=== PATIENT | male | born 1960 | race Caucasian/White ===

== ENCOUNTER 2024-08-13 16:23 | Emergency (ER) | payer OTHER, SELFPAY ==
--- NOTE | ~2024-08-13 | CT_ITS ---
EXAMINATION: CT abdomen pelvis wo con DATE: 08/13/2024 17:24 INDICATION: LLQ abd pain, hematuria TECHNIQUE: Computed tomography (CT) of the abdomen and pelvis was performed without intravenous contr ast. Automated exposure control and iterative reconstruction technique were employed. The dose-length product was 335.63 mGy-cm. COMPARISON: None. FINDINGS: Lower thorax: Unremarkable Liver: Normal. Biliary/Gallbladder: Gallbladder is normal. No bile duct dilation. Pancreas: No mass or duct dilation. Spleen: Normal. Adrenals:No mass. Kidneys: No suspicious mass. Multiple nonobstructing right renal calculi. Mild left perinephric stran ding. Moderate left hydronephrosis. GI tract: No small or large bowel dilation. Normal appendix. Mesentery/Peritoneum: No ascites, mass, or free air. Retroperitoneum: No mass. Pelvis: Nearly empty urinary bladder. Enlarged prostate. 4 mm calcification in the left UVJ. Soft Tissues: Soft tissues and body wall unremarkable. Bones: No acute osseous finding. IMPRESSION: 4 mm calcification in the left UVJ causing moderate obstructive uropathy. Reviewed, dictated and finalized at location [facility].
[2024-08-13 16:22] VITALS: BP 143/102; PULSE 62; RESP 20; TEMP 36.6; O2SAT 100
[2024-08-13 16:53] LABS: Basophils Percent Auto 0.3 % (0.2-1.2); Eosinophils Absolute Auto 0.1 K/mm3 (0-0.3); Eosinophils Percent Auto 0.8 % (0-4.4); Hematocrit 39.3 % (42.0-52.0); Hemoglobin 13.6 g/dL (14.0-18.0); Immature Granulocyte Absolute 0.06 K/mm3 (0.00-0.031); Immature Granulocyte Percent A 0.5 % (0-0.5); Lymphocytes Absolute Auto 1.14 K/mm3 (0.9-3.2); Lymphocytes Percent Auto 9.8 % (18.3-44.2); Mean Corpuscular HGB Conc 34.6 g/dl (32-36); Mean Corpuscular Hemoglobin 30.9 pg (26-34); Mean Corpuscular Volume 89.3 fl (80-100); Mean Platelet Volume 10.3 fl (7.4-10.4); Monocytes Absolute Auto 0.7 K/mm3 (0.1-0.6); Monocytes Percent Auto 6.2 % (2.6-8.5); Neutrophils Absolute Auto 9.6 K/mm3 (1.3-6.7); Neutrophils Percent Auto 82.4 % (45.5-73.1); Platelet Count Result 259 k/mm3 (150-375); Red Cell Distribution Width 12.8 % (11.5-14.5); White Blood Count 11.6 K/mm3 (4.5-10.0)
[2024-08-13 16:57] LABS: Add Urine Microscopic? YES; Appearance Urine Cloudy (Clear); Bacteria Urine None Seen /hpf; Bilirubin Urine Negative (Negative); Blood Urine 3+ (Negative); Color Urine Dark Yellow (Yellow); Glucose Urine UA Negative (Negative); Ketones Urine 3+ mg/dL (Negative); Leukocyte Esterase Ur Trace LEU/UL (Negative); Nitrate Urine Negative (Negative); Non Pathogenic Casts 0-2; Protein Urine 1+ mg/dL (Negative); RBC Urine >100 /hpf (0-2); Specific Grav Ur 1.023 (1.001-1.035); Squamous Epithelial Cell Urine None Seen /hpf (Few); pH Urine 8.5 (5.0-9.0)
[2024-08-13 17:03] LABS: Alanine Aminotransferase 19 U/L (6-50); Albumin Level 4.5 g/dL (3.5-5.1); Alkaline Phosphatase 104 U/L (38-126); Anion Gap 11 mmol/L (4-12); Aspartate Amino Transferase 28 U/L (17-59); Bilirubin,Total 1.4 mg/dL (0.2-1.3); Blood Urea Nitrogen 13 mg/dL (9-20); Calcium 9.2 mg/dL (8.4-10.2); Carbon Dioxide 24 mmol/L (22-30); Chloride 105 mmol/L (98-107); Estimated CRCL calculation 75 ml/min; Estimated Glomerular Filt Rate > 60; Glucose 96 mg/dL (65-110); Lipase 32 U/L (23-300); Potassium 3.6 mmol/L (3.4-5.0); Sodium 140 mmol/L (137-145)
[2024-08-13 17:43] VITALS: BP 170/54; PULSE 61; RESP 20; O2SAT 95
--- NOTE | 2024-08-13 17:52 | ED.ABDPAIN ---
HPI - Abdominal Pain General Chief Complaint: Abdominal Pain Stated Complaint: LLQ pain History of Present Illness HPI narrative: 63-year-old male presents emergency department via EMS for intermittent left lower quadrant pain for the past couple of days. States the pain became significantly worsened today which prompted him to come to the ED. He denies dysuria, hematuria, history of kidney stones, flank pain. Denies fever, nausea, vomiting, diarrhea. He has no past medical history. Related Data Allergies Allergy/AdvReac Type Severity Reaction Status Date / Time No Known Allergies Allergy Verified 05/06/13 18:50 Review of Systems Review of Systems: All systems reviewed & are unremarkable except as noted in HPI and below Exam Narrative: GENERAL: Well-appearing, well-nourished, and in no acute distress. HEAD: Normocephalic, atraumatic. ENT: Nares clear, no rhinorrhea or epistaxis. Mucous membranes moist. NECK: Supple. CHEST: Clear to auscultation. No respiratory distress. HEART: Regular rate and rhythm. No murmur heard. Normal peripheral pulses. ABDOMEN: Normoactive bowel sounds. Abdomen soft with tenderness in the left lower quadrant and suprapubic region. No rebound or guarding or rigidity. No CVA tenderness. EXTREMITIES: Normal range of motion. No edema. SKIN: Warm, dry, no rash. NEURO: No focal deficits. Alert and oriented x3 Course Vital Signs Vital signs: Vital Signs Temperature 97.8 F 08/13/24 16:22 Pulse Rate 62 08/13/24 16:22 Respiratory Rate 20 08/13/24 16:22 Blood Pressure 143/102 H 08/13/24 16:22 Pulse Oximetry 100 08/13/24 16:22 Oxygen Delivery Room Air 08/13/24 16:22 Temperature 97.8 F 08/13/24 16:22 Pulse Rate 61 08/13/24 17:43 Respiratory Rate 20 08/13/24 17:43 Blood Pressure 170/54 H 08/13/24 17:43 Pulse Oximetry 95 08/13/24 17:43 Oxygen Delivery Room Air 08/13/24 16:22 MDM - Abdominal Pain MDM Narrative Medical decision making narrative: 63-year-old male presents emergency department via EMS for intermittent left lower quadrant abdominal pain past couple of days. Triage vital significant for hypertension. He is afebrile nontoxic appearing. Resting comfortably in exam bed. Exam is significant for tenderness to the left lower quadrant and suprapubic region. Will obtain lab work and urinalysis. Based on UA results, will order CT abdomen pelvis with or without contrast. UA reveals large amount of hematuria and 6-10 wbc's as well as 3+ ketonuria. CT abdomen pelvis without contrast obtained due to concerns for a kidney stone which shows a 4 mm stone at the left UVJ. CBC with mild leukocytosis of 11.6. Hemoglobin is 13.6 with normal MCV, no prior for comparison. Chemistries with a normal creatinine of 0.9. Patient updated on workup. He was given a L fluids, Zofran, morphine improvement. I discussed the case with Dr. Campos (urology) he feels patient is safe to discharge home and advises antibiotics. Cipro , Flomax, Zofran and Hay sent to pharmacy. Encouraged follow-up with Urology. Strict ED return precautions discussed. He is agreeable to plan verbalized understanding. Discharged in stable condition. Lab Data 08/13/24 16:46 08/13/24 16:46 Labs: Lab Results 08/13/24 Range/Units 16:46 WBC 11.6 H (4.5-10.0) K/mm3 RBC 4.40 L (4.6-6.20) M/mm3 Hgb 13.6 L (14.0-18.0) g/dL Hct 39.3 L (42.0-52.0) % MCV 89.3 (80-100) fl MCH 30.9 (26-34) pg MCHC 34.6 (32-36) g/dl RDW 12.8 (11.5-14.5) % Plt Count 259 (150-375) k/mm3 MPV 10.3 (7.4-10.4) fl Immature Gran % (Auto) 0.5 (0-0.5) % Neut % (Auto) 82.4 H (45.5-73.1) % Lymph % (Auto) 9.8 L (18.3-44.2) % [place] % (Auto) 6.2 (2.6-8.5) % Eos % (Auto) 0.8 (0-4.4) % Baso % (Auto) 0.3 (0.2-1.2) % Lymph # (Auto) 1.14 (0.9-3.2) K/mm3 [place] # (Auto) 0.7 H (0.1-0.6) K/mm3 Eos # (Auto) 0.1 (0-0.3) K/mm3 Baso #
[2024-08-13] MEDS: ONDANSETRON INJ 4 MG/2 ML VIAL IV PUSH (17:54)
[2024-08-13] MEDS: MORPHINE SULFATE (*CRX) 4 MG/ML INJ IV PUSH (17:54)
[2024-08-13] MEDS: SODIUM CHLORIDE 0.9% IV 1,000 ML 999 ML IV CONT (18:09)
[2024-08-13] MEDS: CIPROFLOXACIN 500 MG TAB PO (18:49)
[2024-08-13] MEDS: HYDROmorphone HCL INJ (*CRX) 1 MG/ML SYR 0.5 MG IV PUSH (18:49)
--- NOTE | 2024-08-30 21:03 | PC.NURSE ---
LATE ENTRY This note is being entered to document information to the patient's record. The following information was omitted on [], by [kallie Mistry RN]. NS stop time was 1900
== END 2024-08-13 18:56 | disposition home or self-care (01) ==
LOC: ANHED 18:23
PROVIDERS: Emergency Provider Physician Assistant; PCP Internal Medicine
DX: N20.1 Calculus of ureter (principal); N13.9 Obstructive and reflux uropathy, unspecified
CPT/HCPCS: 36415; 74176; 80053; 81001; 83690; 85025; 87086; 96361; 96374; 96375; 99284; A9270; J1170; J2270; J2405; J7030